=== PATIENT | female | born 1940 | race Two or more races ===

== ENCOUNTER 2021-06-19 06:56 | Day surgery (SDC) | payer OTHER | END 2021-06-19 13:27 | disposition home or self-care (01) | LOC: AMB-ENDOS 06:56 | PROVIDERS: ATTEND Surgery | DX: D12.8 Benign neoplasm of rectum (principal); Z20.822 Contact with and (suspected) exposure to COVID-19 ==

== ENCOUNTER 2022-05-23 09:46 | Inpatient (IN) | payer OTHER ==
[~2022-05-23] VITALS: Ht 142.2 cm; Wt 59.0 kg
[2022-05-23] MEDS ORDERED: ZESTRIL40 M1 PO (12:57)
[2022-05-23] MEDS ORDERED: LIPIT PO (12:58)
[2022-05-23] MEDS ORDERED: PERSANTINE50 MG PO (12:58)
[2022-05-23] MEDS ORDERED: ZESTRIL10 M1 PO (12:58)
[2022-05-23] MEDS ORDERED: VITAMIN D3 PO (12:59)
[2022-05-23] MEDS ORDERED: SINGULAIR10 MG PO (12:59)
[2022-05-23] MEDS ORDERED: PLAVIX75 MG PO (12:59)
[2022-05-23] MEDS ORDERED: FOLIC A PO (13:00)
[2022-05-23] MEDS ORDERED: SYNTHROID50 MCG PO (13:00)
[2022-05-28] MEDS ORDERED: VITAMIN D310 MC5 (08:32)
[2022-05-28] MEDS ORDERED: FOLIC ACID0.8 M1 (08:32)
[2022-05-28] MEDS ORDERED: ATORVASTATIN CA10 MG PO (08:33)
[2022-05-28] MEDS ORDERED: DONEPEZIL HCL10 MG (08:33)
[2022-05-28] MEDS ORDERED: PENTOXIFYLLINE400 MG (08:33)
[2022-05-28] MEDS ORDERED: SYSTANE ULTRA 010 ML (08:33)
[2022-05-28] MEDS ORDERED: VASOFLEX TABLE1 EACH (08:33)
[2022-05-28] MEDS ORDERED: VITABEX IRON C1 EACH (08:34)
[2022-05-30] MEDS ORDERED: ULTRACET PO (12:05)
[2022-05-30] MEDS ORDERED: INTESTINEX680 M1 PO (12:05)
== END 2022-05-30 14:17 | disposition home or self-care (01) | DRG 331 ==
LOC: O/R 05-27 07:12 → SURG 05-27 10:45 → SURH 05-27 17:37
PROVIDERS: ADMIT Surgery; ATTEND Surgery
PROC: 0DBP4ZZ Excision of Rectum, Percutaneous Endoscopic Approach (ICD-10-PCS; 2022-05-27)
PROC: 07BC4ZZ Excision of Pelvis Lymphatic, Percutaneous Endoscopic Approach (ICD-10-PCS; 2022-05-27)
PROC: 0DJD8ZZ Inspection of Lower Intestinal Tract, Via Natural or Artificial Opening Endoscopic (ICD-10-PCS; 2022-05-27)
PROC: 0DTN4ZZ Resection of Sigmoid Colon, Percutaneous Endoscopic Approach (ICD-10-PCS; principal; 2022-05-27 10:45)
DX: D12.7 Benign neoplasm of rectosigmoid junction (principal); R19.5 Other fecal abnormalities; R19.4 Change in bowel habit; R59.0 Localized enlarged lymph nodes; I11.9 Hypertensive heart disease without heart failure; J44.9 Chronic obstructive pulmonary disease, unspecified; Z20.822 Contact with and (suspected) exposure to COVID-19